=== PATIENT | female | born 1955 | race Caucasian/White ===

== ENCOUNTER → 2016-11-15 | Outpatient (CLI) | payer OTHER | LOC: FIMAGING 10:53 | DX: Z12.31 Encounter for screening mammogram for malignant neoplasm of breast (principal) | CPT/HCPCS: G0202 ==

== ENCOUNTER 2017-02-10 17:38 | Emergency (ER) | payer OTHER ==
[2017-02-10 17:47] VITALS: RESP 18; TEMP 97.5
--- NOTE | 2017-02-10 18:56 | EDPHY ---
H & P Stated Complaint: 6 day car trip/now with pain behind l knee no known trauma Time Seen by Provider: 02/10/17 18:24 HPI/ROS: CHIEF COMPLAINT: Left posterior knee pain HISTORY OF PRESENT ILLNESS: 61-year-old female presents to the emergency department with her complaining of a 2-3 day history pain behind her left knee that is worse with ambulation. 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 Patient is concerned about a DVT. She has plantar fasciitis on this left foot, drove to [place] 3 weeks ago, went on a cruise and drove home from [place] arriving back home 5 days ago. Patient has no history of DVT. She has no numbness or tingling in this leg, no swelling. Pain is described as a pressure, she denies chest pain or shortness of breath. REVIEW OF SYSTEMS: A comprehensive 10 point review of systems is otherwise negative aside from elements mentioned in the history of present illness. Source: Patient Exam Limitations: No limitations - Personal History Current Tetanus/Diphtheria Vaccine: Yes - Medical/Surgical History Hx Asthma: No Hx Chronic Respiratory Disease: No Hx Diabetes: No Hx Cardiac Disease: No Hx Renal Disease: No Hx Cirrhosis: No Hx Alcoholism: No Hx HIV/AIDS: No Hx Splenectomy or Spleen Trauma: No Other PMH: cholecystectomy, hysterectomy, cervical CA, heart cath, HTN - Social History Smoking Status: Never smoked - Physical Exam Exam: GEN: Awake, alert, oriented, no acute distress RESP/cardiac: Lungs clear to auscultation, regular rate and rhythm MSK: Left leg with no obvious swelling, no cords, no masses, mild tenderness to palpation to posterior distal hamstring. 2+ pedal pulses, sensation intact to light touch, full active range of motion of left knee SKIN: No break in skin Constitutional: Initial Vital Signs Temperature (C) 36.4 C 02/10/17 17:44 Heart Rate 77 02/10/17 17:44 Respiratory Rate 18 02/10/17 17:44 Blood Pressure 176/83 H 02/10/17 17:44 O2 Sat (%) 96 02/10/17 17:44 O2 Delivery Mode Room Air Allergies/Adverse Reactions: codeine [Codeine] Allergy (Severe, Verified 02/10/17 17:43) Other-Enter Comments Penicillins Allergy (Verified 02/10/17 17:43) Rash Home Medications: Medication Instructions Recorded Lisinopril 11/26/09 Aspirin 81 04/20/12 Vit D 04/20/12 Medical Decision Making - Diagnostics Imaging Results: Imaging Impressions Extremity Venous Study 02/10/17 18:30 Impression: Negative. No deep venous thrombosis. Findings discussed with emergency department physician assistant store leader, Chelsea Hubbard NP on February 10, 2017 at 1910 hours. Imaging: Discussed imaging studies w/ at home independent call center agent Radiologist ED Course/Re-evaluation: Ultrasound of left leg shows no evidence of DVT or Gamboa cyst. Patient's pain is likely osteoarthritis. Patient has been altering her gait due to her plantar fasciitis in this same foot. She will follow up with her orthopedist. She is given strict return precautions. Differential Diagnosis: Diagnosis considered but not limited to DVT, Gamboa cyst, osteoarthritis, strain Departure - Departure Disposition: Home, Routine, Self-Care Clinical Impression: Left knee pain Qualifiers: Chronicity: acute Qualified Code(s): M25.562 - Pain in left knee Condition: Good Instructions: Knee Pain (ED) Additional Instructions: There was no DVT or Gamboa cyst that was seen on the ultrasound. rest, ice, elevate, take 600 mg of ibuprofen every 8 hours with food for 3-5 days, follow up with the orthopedist for any pain that is not improving in the next 3-5 days. Return to the emergency department for any new symptoms or concerns. Referrals: Giovanny Guadarrama MD [Medical Doctor] - As per Instructions ( Orthopedist on-call)
[2017-02-10 19:38] VITALS: BP 151/74; PULSE 73; O2SAT 97
== END 2017-02-10 19:38 | disposition home or self-care (01) ==
DX: M25.562 Pain in left knee (principal); I10 Essential (primary) hypertension; Z79.82 Long term (current) use of aspirin; Z85.41 Personal history of malignant neoplasm of cervix uteri

== ENCOUNTER 2017-07-29 19:39 | Emergency (ER) | payer OTHER ==
[2017-07-29 19:48] VITALS: TEMP 98.1
--- NOTE | 2017-07-29 19:54 | CPEKG ---
Heart Rate: 78 RR Interval: 769 P-R Interval: 148 QRSD Interval: 102 QT Interval: 408 QTC Interval: 465 P [place]: 48 QRS [place]: -1 T Wave [place]: 53 EKG Severity - ABNORMAL ECG - EKG Impression: SINUS RHYTHM EKG Impression: PROBABLE LEFT ATRIAL ABNORMALITY EKG Impression: LEFT VENTRICULAR HYPERTROPHY EKG Impression: LATERAL INFARCT, OLD Electronically Signed By: Juanjo Ramirez 29-Jul-2017 21:44:06
[2017-07-29] MEDS ORDERED: NS 500 ML IV ONE (20:03)
[2017-07-29] MEDS ORDERED: ASPIRIN 81 MG CHEWABLE TAB PO ONE (20:03)
--- NOTE | 2017-07-29 20:03 | EDPHY ---
H & P Stated Complaint: Cp - Personal History Current Tetanus Diphtheria and Acellular Pertussis (TDAP): Yes - Medical/Surgical History Hx Asthma: No Hx Chronic Respiratory Disease: No Hx Diabetes: No Hx Cardiac Disease: No Hx Renal Disease: No Hx Cirrhosis: No Hx Alcoholism: No Hx HIV/AIDS: No Hx Splenectomy or Spleen Trauma: No Other PMH: cholecystectomy, hysterectomy, cervical CA, heart cath, HTN - Social History Smoking Status: Never smoked HPI/ROS: HPI CHIEF COMPLAINT: Chest pain HISTORY OF PRESENT ILLNESS: This patient very pleasant 62-year-old female, significant past medical history for hypertension and GERD, she presents emergency room with chest discomfort. She describes a achy sensation high up in her chest. This started initially around 3:00 p.m.. How around 4:30 p.m. it became constant and has been constant since. She decided come the emergency room as this is a little bit different than her reflux. She states her reflux pain is usually lower abdomen her epigastric region this discomfort is in her upper chest. She denies radiation of this discomfort she denies shortness of breath or pleuritic pain. Denies numbness or tingling. Denies focal weakness. Denies radiation of back pain jaw pain or neck pain. No recent illness. Denies fever or productive cough. 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 Her cardiac risk factors include age, hypertension, obesity she does not have a family history of cardiac disease. She does not smoke. She does report to me that she had a cardiac catheterization approximately 8 years ago, as well as a stress test right before the cardiac catheterization. She states this was normal. Past Medical History: Hypertension, obesity, GERD, cervical CA Past Surgical History: Cervical surgery, cholecystectomy Social History: Denies daily use drugs alcohol tobacco products. 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 Family History: Noncontributory ROS REVIEW OF SYSTEMS: A comprehensive 10 point review of systems is otherwise negative aside from elements mentioned in the history of present illness. Exam Constitutional appears well nontoxic triage nursing summary reviewed, vital signs reviewed, awake/alert. Vital signs at triage noted. Hypertensive. Eyes normal conjunctivae and sclera, EOMI, PERRLA. HENT normal inspection, atraumatic, moist mucus membranes, no epistaxis, neck supple/ no meningismus, no raccoon eyes. Respiratory clear to auscultation bilaterally, normal breath sounds, no respiratory distress, no wheezing. Cardiovascular rate normal, regular rhythm, no murmur, no edema, distal pulses normal. Gastrointestinal soft, non-tender, no rebound, no guarding, normal bowel sounds, no distension, no pulsatile mass. Genitourinary no CVA tenderness. Musculoskeletal no midline vertebral tenderness, full range of motion, no calf swelling, no tenderness of extremities, no meningismus, good pulses, neurovascularly intact. Skin pink, warm, & dry, no rash, skin atraumatic. Neurologic awake, alert and oriented x 3, AAOx3, moves all 4 extremities equally, motor intact, sensory intact, CN II-XII intact, normal cerebellar, normal vision, normal speech. Psychiatric normal mood/affect. Heme/Lymph/Immune no lymphadenopathy. Differential diagnosis includes but is not limited to: ACS, atypical chest pain , pneumothorax, pneumonia, pulmonary embolism, aortic dissection, congestive heart failure, tumor, musculoskeletal pain, esophageal pain, GERD, peptic ulcer disease, pancreatitis Medical Decision Making: Plan for this patient full court recording monitor, IV establishment obtain EKG, she took full-dose aspirin prior to coming, I have ordered her nitroglycerin however she has refused nitroglycerin. She would like IV Pepcid and a GI cocktail she states this usually works for her reflux. I explained that given that this is not similar to reflux that we should try dose of nitroglycerin to see if this improves her chest discomfort. However she refused. Of note her blood pressure upon arrival to the emergency room is in the 190 systolic. She does currently have chest discomfort achy sensation substernal across her chest. Describes 01/20. Will obtain troponin. Chest x- ray. Full court recording monitor. GI cocktail and IV Pepcid to see if this improves her discomfort. Re-evaluation: EKG interpretation by me on record in [employer] system. Impression time of EKG 1951: Sinus rhythm rate of 78, LVH present. No ST elevation. No significant T-wave abnormalities, Q-waves noted in lateral leads specifically 1 in aVL. When I compare this to her old EKG dated 11/19/2015 similar morphology I do not appreciate significant changes. 2050: Troponin noted to be negative. D-dimer negative. EKG pretty much unchanged from previous EKG. 2051: She received a GI cocktail which did not really improve her chest discomfort. She is requesting IV Pepcid. Will provide. Declined nitroglycerin. 2052: X-ray reviewed shows cardiomegaly. Change from previous chest x-ray.' Cardiac risk factors include obesity, hypertension, age, atypical chest pain story and female. Additional risk factors include cardiomegaly seen on chest x-ray. It is reassuring that her troponin D-dimer negative. EKG does not overtly show any acute ischemia. I have made recommendations to the patient that she be admitted overnight to the hospital for further cardiac evaluation and risk stratification with serial cardiac enzymes serial EKGs and possibly stress test. 2115: Patient is not gotten much relief with GI cocktail and IV Pepcid. Again I recommended given her risk factors that she be admitted to the hospital for further cardiac evaluation. She is discussing with this with her about if she wants to be admitted. Reasons I feel that she should be admitted, hypertension, age, obesity, cardiomegaly seen on chest x-ray. Her troponin and D-dimer are negative her EKG is unchanged from previous EKG. I did give her the other option of repeating a troponin in 4 hr and repeat EKG if she is chest pain-free and these are normal I will allow her to go home to follow up closely with cardiology. They are discussing. 2131: After extensive discussion with the patient and her and reviewing risk factors and current workup she really does not want come into the hospital as she is refusing hospital admission she would like to do repeat EKG repeat troponin 4 hr after her initial troponin and EKG. If these are negative and she has no chest discomfort and her blood pressure improved she can go home. She will need close follow up with Cardiology for outpatient stress testing. Additionally she understands to return immediately emergency room she develops worsening symptoms. I did encourage her to be admitted given her risk factors which includes age, obesity, hypertension and somewhat different story than her typical GERD however she is declining this. Dr. Turner Dutton is her brownfield program coordinator she does state that she will follow up with him closely. Additionally she would like to do repeat EKG repeat troponin her initial symptoms started around 3 o'clock this 6 hr ago. If we do repeat troponin EKG and she does not have any chest discomfort 4 hr after her troponin in the emergency room that was normal if these are normal she can go home. Return precautions advised to the patient who is a underliner would like this plan better about repeat troponin repeat EKG even though explained that she should stay in the hospital for serial enzyme stress and echo. However she has declined. They do understand the risks of this. Patient signed over to Dr. Quiroz at 10pm. Follow up repeat ekg, trop. (Juanjo Ramirez) Constitutional: Initial Vital Signs Temperature (C) 36.7 C 07/29/17 19:46 Heart Rate 82 07/29/17 19:46 Respiratory Rate 20 07/29/17 19:46 Blood Pressure 192/120 H 07/29/17 19:46 O2 Sat (%) 97 07/29/17 19:46 O2 Delivery Mode Room Air Allergies/Adverse Reactions: codeine [Codeine] Allergy (Severe, Verified 07/29/17 19:45) Other-Enter Comments Penicillins Allergy (Verified 07/29/17 19:45) Rash Home Medications: Medication Instructions Recorded Lisinopril [Zestril 30 mg] 30 mg PO BID 11/26/09 Aspirin EC [Aspirin EC 81 mg (*)] 81 mg PO DAILY 04/20/12 Cholecalciferol Vit D3 [Vitamin D3 2,000 units PO DAILY 04/20/12 (*)] Hydrochlorothiazide [HCTZ (*)] 12.5 mg PO DAILY PRN 07/29/17 Medical Decision Making - Diagnostics EKG Interpretation: EKG interpreted by me reveals normal sinus rhythm, rate 78, LVH, old lateral infarct. No change from prior EKG on 11/19/2015. (Thalia Juarez) ED Course/Re-evaluation: This patient was signed over to me at shift change. She presents with chest pain. She refused admission. Initial EKG and troponin are normal. The plan is to repeat a troponin at midnight. If the repeat troponin and EKG are normal and she is chest pain free, the plan is to discharge her home. Signed over to Dr. Quiroz at 11:00 p.m. with this plan. (Thalia Juarez) Differential Diagnosis: Differential diagnosis includes though it is not limited to pneumonia, pneumothorax, pulmonary embolism, aortic dissection, pericarditis, acute coronary syndrome. (Thalia Juarez) - Data Points Laboratory Results: Laboratory Results 07/29/17 19:55 07/29/17 19:55 Medications Given: Discontinued Medications Al Hydroxide/Mg Hydroxide (Maalox Susp) 30 ml PO ONCE ONE Stop: 07/29/17 20:18 Last Admin: 07/29/17 20:22 Dose: 30 ml Aspirin (Aspirin) 324 mg PO EDNOW ONE Stop: 07/29/17 20:04 Last Admin: 07/29/17 20:12 Dose: 324 mg Famotidine (Pepcid) 20 mg IVP EDNOW ONE Stop: 07/29/17 20:50 Last Admin: 07/29/17 20:55 Dose: 20 mg Hyoscyamine Sulfate (Levsin, Hyomax-Sl) 0.25 mg PO ONCE ONE Stop: 07/29/17 20:18 Last Admin: 07/29/17 20:21 Dose: 0.25 mg Sodium Chloride (Ns) 500 mls @ 1,000 mls/hr IV EDNOW ONE PRN Reason: Protocol Stop: 07/29/17 20:32 Last Admin: 07/29/17 20:11 Dose: 500 mls Lidocaine (Lidocaine 2% Viscous) 15 ml PO ONCE ONE Stop: 07/29/17 20:18 Last Admin: 07/29/17 20:22 Dose: 15 ml Nitroglycerin (Nitrostat) 0.4 mg SL EDNOW ONE Stop: 07/29/17 20:12 Last Admin: 07/29/17 20:14 Dose: Not Given Departure - Departure Disposition: Home, Routine, Self-Care Clinical Impression: Chest pain Qualifiers: Chest pain type: unspecified Qualified Code(s): R07.9 - Chest pain, unspecified Condition: Fair Instructions: Chest Pain (ED) Additional Instructions: 1. Please return emergency room if develops any worsening chest pain shortness of breath questions or concerns. 2. Please call your brownfield program coordinator for follow-up appointment. You need a stress test. Referrals: Steve Gonsalez MD [Primary Care Provider] - As per Instructions Álvaro Mendez MD [Medical Doctor] - As per Instructions
[2017-07-29] MEDS ORDERED: NITROGLYCERIN 0.4 MG BTL SL ONE ×2 (20:08→20:11)
[2017-07-29] MEDS ORDERED: MAG HYDROX/AL HYDROX/SIMETH 30 ML UDCUP PO ONE (20:17)
[2017-07-29] MEDS ORDERED: HYOSCYAMINE SULFATE 0.125 MG TAB PO ONE (20:17)
[2017-07-29] MEDS ORDERED: LIDOCAINE 2% VISCOUS 15 ML UDCUP PO ONE (20:17)
[2017-07-29 20:26] LABS: % IMMATURE GRANULYOCYTES 0.3 % (0.0-1.1); ABSOLUTE IMMATURE GRANULOCYTES 0.02 10^3/uL (0.00-0.10); ADD DIFF? NO; ADD MORPH? NO; ADD SCAN? NO; ATYPICAL LYMPHOCYTE FLAG 0 (0-99); FRAGMENT RBC FLAG 0 (0-99); HEMATOCRIT 43.2 % (38.0-47.0); HEMOGLOBIN 15.4 g/dL (12.6-16.3); LEFT SHIFT FLG 0 (0-99); LIPEMIA HEMOLYSIS FLAG 90 (0-99); MEAN CELL HEMOGLOBIN 30.6 pg (27.9-34.1); MEAN CELL HEMOGLOBIN CONCENTR. 35.6 g/dL (32.4-36.7); MEAN CELL VOLUME 85.7 fL (81.5-99.8); MEAN PLATELET VOLUME 10.2 fL (8.7-11.7); PLATELET CLUMPS FLAG 0 (0-99); PLATELET COUNT 232 10^3/uL (150-400); RED BLOOD CELL COUNT 5.04 10^6/uL (4.18-5.33)
[2017-07-29 20:36] LABS: ALANINE AMINOTRANSFERASE 32 IU/L (9-52); ALBUMIN 4.3 g/dL (3.5-5.0); ALKALINE PHOSPHATASE 74 IU/L (38-126); ANION GAP 13 mEq/L (8-16); ASPARTATE AMINOTRANSFERASE 29 IU/L (14-46); BILIRUBIN,TOTAL 0.7 mg/dL (0.1-1.4); BILIRUBIN-CONJUGATED 0.4 mg/dL (0.0-0.5); BILIRUBIN-UNCONJUGATED 0.3 mg/dL (0.0-1.1); CALCIUM 9.7 mg/dL (8.5-10.4); CARBON DIOXIDE 20 mEq/l (22-31); CHLORIDE 108 mEq/L (97-110); CREATININE 0.8 mg/dL (0.6-1.0); GLOMERULAR FILTRATION RATE > 60; GLUCOSE 110 mg/dL (70-100); MAGNESIUM 2.1 mg/dL (1.6-2.3); POTASSIUM 4.2 mEq/L (3.5-5.2); SODIUM 141 mEq/L (134-144); TOTAL PROTEIN 6.4 g/dL (6.3-8.2)
[2017-07-29 20:38] LABS: INR 0.94 (0.83-1.16); PROTIME(PATIENT) 12.8 SEC (12.0-15.0)
[2017-07-29 20:39] LABS: APTT 25.1 SEC (23.0-38.0)
[2017-07-29 20:47] LABS: CK-MB INTERPRETATION NEGATIVE (NEGATIVE); CREATINE KINASE-MB FRACTION 2.88 ng/mL (0.00-3.19); TROPONIN I < 0.012 ng/mL (0.000-0.034)
[2017-07-29] MEDS ORDERED: FAMOTIDINE 20 MG/2 ML SDV IVP ONE (20:49)
[2017-07-29 23:24] VITALS: O2SAT 96
--- NOTE | 2017-07-29 23:59 | CPEKG ---
Heart Rate: 59 RR Interval: 1017 P-R Interval: 160 QRSD Interval: 106 QT Interval: 432 QTC Interval: 428 P [place]: 41 QRS [place]: 2 T Wave [place]: 41 EKG Severity - NORMAL ECG - EKG Impression: SINUS RHYTHM Electronically Signed By: Silva Quiroz 30-Jul-2017 07:56:03
[2017-07-30 01:08] VITALS: BP 145/62; PULSE 59; RESP 18
== END 2017-07-30 01:08 | disposition home or self-care (01) ==
DX: R07.9 Chest pain, unspecified (principal); I10 Essential (primary) hypertension; E86.9 Volume depletion, unspecified; Z85.41 Personal history of malignant neoplasm of cervix uteri; Z79.82 Long term (current) use of aspirin
CPT/HCPCS: 96374

== ENCOUNTER → 2017-10-24 | Outpatient (CLI) | payer OTHER | LOC: FIMAGING 07:26 | PROVIDERS: ATTEND Internal Medicine Gastroenterology | DX: R12 Heartburn (principal) ==

== ENCOUNTER → 2017-11-16 | Outpatient (CLI) | payer OTHER | LOC: FIMAGING 10:22 | PROVIDERS: ATTEND Internal Medicine | DX: Z12.31 Encounter for screening mammogram for malignant neoplasm of breast (principal) ==

== ENCOUNTER 2018-06-06 22:21 | Emergency (ER) | payer OTHER ==
--- NOTE | 2018-06-06 22:57 | CPEKG ---
Test Reason : OPEN Blood Pressure : / mmHG Vent. Rate : 072 BPM Atrial Rate : 075 BPM P-R Int : 134 ms QRS Dur : 098 ms QT Int : 413 ms P-R-T Axes : 052 -01 032 degrees QTc Int : 453 ms Sinus rhythm Probable left atrial enlargement Left ventricular hypertrophy Confirmed by Silva Quiroz ([id number]) on 06/06/2018 10:57:25 PM Referred By: Confirmed By:Silva Quiroz
--- NOTE | 2018-06-06 23:17 | EDPHY ---
H & P Stated Complaint: fell 1 wk ago now chest & back pain Time Seen by Provider: 06/06/18 22:38 HPI/ROS: HPI The patient presents with chest and back pain which became worse approximately 2 -3 hours ago while seated. About 1 week ago, the patient had a fall off of a deck, hitting her left lateral chest wall on a railing. She has had pain ever since which she is treating with lidocaine patches, aspirin, heat. She has had some setbacks, however the pain has mostly been controlled until tonight. As she describes it as positional, worse when she moves her left arm or turns to the side. She is feeling better now, however this pain was quite severe about 1 hr ago. She does have a history of hypertension. She had a stress test and echocardiogram performed about 8 months ago which were both normal she reports. REVIEW OF SYSTEMS 10 systems were reviewed and negative with the exception of the elements mentioned in the history of present illness. PMHx: Hypertension, currently on lisinopril, history of GERD Followed by Dr. 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 PHYSICAL General Appearance: Alert, uncomfortable with any changes in position Eyes: Pupils equal and round no pallor or injection ENT, Mouth: Mucous membranes moist Respiratory: There are no retractions, lungs are clear to auscultation Cardiovascular: Regular rate and rhythm Chest wall: Left-sided lower lateral rib segment tenderness to palpation Gastrointestinal: Abdomen is soft and non-tender, no masses, bowel sounds normal Neurological: A&O, moves all extremities Skin: Warm and dry, no rashes Musculoskeletal: Neck is supple non tender Extremities: symmetrical, full range of motion Psychiatric: Patient is oriented X 3, there is no agitation Source: Patient, Family Exam Limitations: No limitations - Personal History Current Tetanus/Diphtheria Vaccine: Unsure Current Tetanus Diphtheria and Acellular Pertussis (TDAP): Unsure - Medical/Surgical History Hx Asthma: No Hx Chronic Respiratory Disease: No Hx Diabetes: No Hx Cardiac Disease: No Hx Renal Disease: No Hx Cirrhosis: No Hx Alcoholism: No Hx HIV/AIDS: No Hx Splenectomy or Spleen Trauma: No Other PMH: cholecystectomy, hysterectomy, cervical CA, heart cath, HTN - Social History Smoking Status: Never smoked Constitutional: Initial Vital Signs Temperature (C) 36.4 C 06/06/18 22:22 Heart Rate 116 H 06/06/18 22:22 Respiratory Rate 22 H 06/06/18 22:22 Blood Pressure 198/110 H 06/06/18 22:22 O2 Sat (%) 95 06/06/18 22:22 O2 Delivery Mode Room Air Allergies/Adverse Reactions: codeine [Codeine] Allergy (Severe, Verified 07/29/17 19:45) Other-Enter Comments Penicillins Allergy (Verified 07/29/17 19:45) Rash Home Medications: Medication Instructions Recorded Lisinopril [Zestril 30 mg] 30 mg PO BID 11/26/09 Aspirin EC [Aspirin EC 81 mg (*)] 81 mg PO DAILY 04/20/12 Cholecalciferol Vit D3 [Vitamin D3 2,000 units PO DAILY 04/20/12 (*)] Hydrochlorothiazide [HCTZ (*)] 12.5 mg PO DAILY PRN 07/29/17 Medical Decision Making - Diagnostics EKG Interpretation: EKG: Complete interpretation has been separately recorded in the [employer] archive. Summary impression: Normal sinus rhythm, unchanged from prior EKGs Imaging Results: Imaging Impressions Ribs w/Chest X-Ray 06/06/18 23:11 Impression: 1. Nondisplaced fracture anterolateral left sixth rib. 2. No acute abnormality otherwise within the chest. Differential Diagnosis: This is a 63-year-old female with hypertension, GERD, history of cholecystectomy who presents with 1 week of left-sided chest and back pain, which became worse while at rest 2-3 hours ago. On exam, she is quite hypertensive but says that she does have white coat hypertension and she has been checking her blood pressures daily at home and they have been normal. She is compliant with her antihypertensives. She does have tenderness of her rib cage. Differential diagnosis includes rib fracture, pulmonary contusion, chest wall contusion, muscle spasm, ACS. In the emergency department, patient was given Toradol and Valium. She had already taken aspirin at home. She had some improvement in her symptoms with these medications. Chest x-ray did reveal left-sided 6th rib fracture without any pneumothorax. She had negative troponin, no EKG changes, other labs were normal. I suspect her symptoms are coming from this rib fracture with associated chest wall muscle spasm. I have considered aortic dissection, however chest x-ray demonstrates no mediastinal widening, pulses are normal. I have encouraged her to continue lidocaine patches, anti-inflammatories, arrange for follow up with her primary care doctor. She is on board with this plan. - Data Points Laboratory Results: Laboratory Results 06/06/18 23:02 06/06/18 23:02 06/06/18 06/06/18 06/06/18 23:38 23:02 23:02 WBC 5.66 10^3/uL 10^3/uL (3.80-9.50) RBC 4.92 10^6/uL 10^6/uL (4.18-5.33) Hgb 14.6 g/dL g/dL (12.6-16.3) Hct 42.3 % % (38.0-47.0) MCV 86.0 fL fL (81.5-99.8) MCH 29.7 pg pg (27.9-34.1) MCHC 34.5 g/dL g/dL (32.4-36.7) RDW 13.2 % % (11.5-15.2) Plt Count 194 10^3/uL 10^3/uL (150-400) MPV 10.3 fL fL (8.7-11.7) Neut % (Auto) 49.9 % % (39.3-74.2) Lymph % (Auto) 36.7 % % (15.0-45.0) [place] % (Auto) 9.7 % % (4.5-13.0) Eos % (Auto) 2.8 % % (0.6-7.6) Baso % (Auto) 0.7 % % (0.3-1.7) Nucleat RBC Rel Count 0.0 % % (0.0-0.2) Absolute Neuts (auto) 2.82 10^3/uL 10^3/uL (1.70-6.50) Absolute Lymphs (auto) 2.08 10^3/uL 10^3/uL (1.00-3.00) Absolute Monos (auto) 0.55 10^3/uL 10^3/uL (0.30-0.80) Absolute Eos (auto) 0.16 10^3/uL 10^3/uL (0.03-0.40) Absolute Basos (auto) 0.04 10^3/uL 10^3/uL (0.02-0.10) Absolute Nucleated RBC 0.00 10^3/uL 10^3/uL (0-0.01) Immature Gran % 0.2 % % (0.0-1.1) Immature Gran # 0.01 10^3/uL 10^3/uL (0.00-0.10) Sodium 143 mEq/L mEq/L (135-145) Potassium 4.1 mEq/L mEq/L (3.3-5.0) Chloride 108 mEq/L mEq/L (97-110) Carbon Dioxide 25 mEq/l mEq/l (22-31) Anion Gap 10 mEq/L mEq/L (6-14) BUN 26 mg/dL H mg/dL (7-23) Creatinine 0.9 mg/dL mg/dL (0.6-1.0) Estimated GFR > 60 Glucose 122 mg/dL H mg/dL (70-100) Calcium 9.6 mg/dL mg/dL (8.5-10.4) POC Troponin I 0.00 ng/mL ng/mL (0.00-0.08) Medications Given: Discontinued Medications Diazepam (Valium) 5 mg IVP EDNOW ONE Stop: 06/06/18 23:37 Last Admin: 06/06/18 23:39 Dose: 5 mg Ketorolac Tromethamine (Toradol) 15 mg IVP ONCE ONE Stop: 06/06/18 23:37 Last Admin: 06/06/18 23:39 Dose: 15 mg Point of Care Test Results: Chemistry 06/06/18 23:38 POC Troponin I 0.00 ng/mL ng/mL (0.00-0.08) Departure - Departure Disposition: Home, Routine, Self-Care Clinical Impression: Left rib fracture Qualifiers: Encounter type: initial encounter Rib fracture type: single rib Fracture type: closed Qualified Code(s): S22.32XA - Fracture of one rib, left side, initial encounter for closed fracture Chest pain Qualifiers: Chest pain type: unspecified Qualified Code(s): R07.9 - Chest pain, unspecified Condition: Good Instructions: Rib Fracture (ED) Additional Instructions: Please add acetaminophen 1 g every 6 hr to your current medication regimen. You should return to the emergency department if your worse in any way. I would like for you to follow up with your primary care physician with a phone call tomorrow to arrange for follow-up if your pain persists. You can return to the ER at any time if your pain is severe. Referrals: Juanjo Nagy MD [Primary Care Provider] - As per Instructions
[2018-06-06 23:20] LABS: PLATELET COUNT 194 10^3/uL (150-400)
[2018-06-06] MEDS: DIAZEPAM 5 MG/ML 1 ML SYR IVP ONE (23:39)
[2018-06-06] MEDS: KETOROLAC 15 MG/1 ML SDV IVP ONE (23:39)
[2018-06-07 00:37] VITALS: BP 161/68
== END 2018-06-07 00:37 | disposition home or self-care (01) ==
DX: S22.32XA Fracture of one rib, left side, initial encounter for closed fracture (principal); W13.8XXA Fall from, out of or through other building or structure, initial encounter
CPT/HCPCS: 84484-PO; 96374; J1885; J3360

== ENCOUNTER → 2018-10-25 | Outpatient (CLI) | payer OTHER | LOC: FIMAGING 16:50 | PROVIDERS: ATTEND Internal Medicine | DX: M79.604 Pain in right leg (principal) ==

== ENCOUNTER → 2018-11-26 | Outpatient (CLI) | payer OTHER | LOC: FIMAGING 10:03 | PROVIDERS: ATTEND Internal Medicine | DX: Z12.31 Encounter for screening mammogram for malignant neoplasm of breast (principal) ==